=== PATIENT | female | born 2000 | race Caucasian/White ===

== ENCOUNTER 2022-05-11 18:31 | Emergency (ER) | payer OTHER, SELFPAY ==
--- NOTE | ~2022-05-11 | XR_ITS ---
EXAM: XR foot LT min 3V DATE: 05/11/2022 18:58 HISTORY: pain and swelling on lateral side of left 5th metatarsal. . COMPARISON: None available. FINDINGS: Normal mineralization. Nondisplaced transverse fracture of the proximal aspect of the left fifth metatarsal, 1.2 cm from the tip of the tuberosity, and not definitively involving the intermet atarsal articulation. No lytic or blastic lesion. Joint spaces are maintained. No erosion or perioste al change. Soft tissues within normal limits. IMPRESSION: Nondisplaced proximal fifth metatarsal avulsion fracture (also known as a dancer's fractu re or pseudo-Christensen fracture). Reviewed, dictated and finalized at location [facility] IMPRESSION: Nondisplaced proximal fifth metatarsal avulsion fracture (also know n as a dancer's fracture or pseudo-Christensen fracture).
[2022-05-11 18:32] VITALS: BP 139/89; PULSE 103; RESP 16; TEMP 36.3; O2SAT 98
[2022-05-11 18:35] VITALS: BP 139/89; PULSE 98; RESP 16; TEMP 36.3; O2SAT 97
--- NOTE | 2022-05-11 19:12 | ED.GENADULT ---
HPI - General Adult General Chief complaint: Extremity Injury, Lower Stated complaint: L foot pain Time Seen by Provider: 05/11/22 19:06 History of Present Illness HPI narrative: Alejandra presented to the ED with pain in her left foot. Pain started after standing up with her toes trapped and she felt immediate pain. There were no other injuries or concerns noted. Related Data Allergies Allergy/AdvReac Type Severity Reaction Status Date / Time Penicillins Allergy Itching Verified 05/11/22 18:42 Review of Systems Review of Systems: All systems reviewed & are unremarkable except as noted in HPI and below Exam Const: General: healthy appearing, no acute distress and alert Nutritional Appearance: well nourished Orientation/consciousness: patient oriented x3 HENMT: Head: normal to inspection Ears: external ears normal Face/Nose/Sinus: Normal external nose present Eyes: Conjunctivae: conjunctivae normal Pupils: Equal, round and reactive pupils present EOM: EOMs intact bilaterally Neck: Neck: normal visual inspection Chest: Chest palpation & inspection: normal inspection of the chest Resp: Effort & Inspection: normal respiratory effort Cardio: Rate: regular rate Skin: General skin exam: normal color Neuro: General: patient oriented x3 and moves all extremities Extrem: Other: TTP over the left lateral foot Psych: Mental Status: mental status grossly normal Course Course Emergency Course: EXAM:? XR foot LT min 3V DATE: 05/11/2022 18:58 HISTORY: pain and swelling on lateral side of left 5th metatarsal. . COMPARISON:? None available. FINDINGS:? Normal mineralization. Nondisplaced transverse fracture of the proximal aspect of the left fifth metatarsal, 1.2 cm from the tip of the tuberosity, and not definitively involving the intermetatarsal articulation. No lytic or blastic lesion. Joint spaces are maintained. No erosion or periosteal change. Soft tissues within normal limits. IMPRESSION: Nondisplaced proximal fifth metatarsal avulsion fracture (also known as a dancer's fracture or pseudo-Christensen fracture). Vital Signs Vital signs: Vital Signs Temperature 97.3 F L 05/11/22 18:32 Pulse Rate 103 H 05/11/22 18:32 Respiratory Rate 16 05/11/22 18:32 Blood Pressure 139/89 05/11/22 18:32 Pulse Oximetry 98 05/11/22 18:32 Oxygen Delivery Room Air 05/11/22 18:32 Temperature 97.3 F L 05/11/22 18:35 Pulse Rate 98 05/11/22 18:35 Respiratory Rate 16 05/11/22 18:35 Blood Pressure 139/89 05/11/22 18:35 Pulse Oximetry 97 05/11/22 18:35 Oxygen Delivery Room Air 05/11/22 18:35 Medical Decision Making Vital Signs Vital Signs: Vital Signs Temperature 97.3 F L 05/11/22 18:32 Pulse Rate 103 H 05/11/22 18:32 Respiratory Rate 16 05/11/22 18:32 Blood Pressure 139/89 05/11/22 18:32 Pulse Oximetry 98 05/11/22 18:32 Oxygen Delivery Room Air 05/11/22 18:32 Temperature 97.3 F L 05/11/22 18:35 Pulse Rate 98 05/11/22 18:35 Respiratory Rate 16 05/11/22 18:35 Blood Pressure 139/89 05/11/22 18:35 Pulse Oximetry 97 05/11/22 18:35 Oxygen Delivery Room Air 05/11/22 18:35 Discharge Plan Discharge Clinical Impression: Dancer's fracture Patient Disposition: Home, Self-Care Condition: Stable Instructions: Foot Fracture in Adults (ED) Additional Instructions: Please wear your walking boot and only bear as little weight as tolerated. Prescriptions: New hydrocodone-acetaminophen 5-325 mg tablet 1 tablet PO Q8H PRN (Reason: pain) Qty: 10 0RF Follow-up/Referrals: UNKNOWN,DOCTOR [Primary Care Provider] -
[2022-05-11] MEDS: HYDROcodone/acetaminophen (*CRX) 5-325 MG TABLET 1 TAB PO (19:23)
[2022-05-11] MEDS: KETOROLAC 30 MG/ML VIAL (*BKC) IM (19:24)
== END 2022-05-11 19:28 | disposition home or self-care (01) ==
PROVIDERS: Emergency Provider Family Medicine
DX: S92.515A Nondisplaced fracture of proximal phalanx of left lesser toe(s), initial encounter for closed fracture (principal); X50.1XXA Overexertion from prolonged static or awkward postures, initial encounter
CPT/HCPCS: 73630; 96372; 99284; A9270; J1885; L2112

== ENCOUNTER 2022-09-19 08:52 | Emergency (ER) | payer BC, SELFPAY ==
--- NOTE | ~2022-09-19 | XR_ITS ---
Clinical Indication: Status post toxic ingestion PA and lateral views of the chest: Comparison: None Findings: The lungs are clear, without evidence of focal consolidation or pleural effusion. Cardiome diastinal silhouette is within normal limits. Bones and soft tissues are unremarkable. Impression: Normal chest. Reviewed, dictated and finalized at [facility]. Impression: Normal chest.
[2022-09-19 08:54] VITALS: BP 134/90; PULSE 92; RESP 16; TEMP 36.2; O2SAT 99
[2022-09-19 09:03] VITALS: PULSE 90; RESP 18; RESP 20; O2SAT 99
[2022-09-19 09:04] VITALS: BP 138/97; PULSE 98; RESP 22; O2SAT 99
[2022-09-19 09:07] VITALS: PULSE 102
[2022-09-19] MEDS: ONDANSETRON HCL ODT 4 MG TABLET PO (09:24)
--- NOTE | 2022-09-19 09:36 | ED.GENADULT ---
HPI - General Adult General Chief complaint: Unspecified Stated complaint: chemical exposure-amonia/bleach Time Seen by Provider: 09/19/22 09:06 History of Present Illness HPI narrative: Patient is a 22-year-old female here for evaluation after exposure to chlorine gas. Patient states that she was cleaning up her dog's urine last evening with a large amount of bleach and she immediately started to feel unwell with eyes watering, shortness of breath, cough and congestion. She states that she went to bed and went to work this morning but her coworkers were concerned about the amount of eye watering and so they called poison control who referred her to the ED. States that her respiratory symptoms have improved but her eyes have continued to water despite frequent eye washing. Related Data Allergies Allergy/AdvReac Type Severity Reaction Status Date / Time Penicillins Allergy Itching Verified 09/19/22 08:54 Review of Systems Review of Systems: Gen.: Denies fevers or chills Eyes: Reports eyes are watering ENT: Denies congestion Respiratory: Reports shortness of breath and cough CV: Denies chest pain or palpitations GI: Denies abdominal pain nausea, emesis or diarrhea denies burning, urgency, frequency or hematuria Musculoskeletal: Denies back pain or muscle pain Neuro: Denies numbness, tingling, weakness or focal weakness Skin: Denies rash Except as documented, all other systems reviewed and negative Exam Narrative: APPEARANCE: Well appearing, no pain in distress, well-nourished. Head: Normocephalic and atraumatic. EYES: PERRLA/EOMI, conjunctivae clear NOSE: No nasal drainage EARS: External ear normal in appearance THROAT: Oropharynx is clear. Mucous membranes are moist. NECK: Supple. No adenopathy, no masses. RESPIRATORY: Airway patent, respirations nonlabored. Clear to auscultation bilaterally, no rales, rhonchi, wheezing. CARDIOVASCULAR: Regular rate and rhythm without murmurs, rubs, or gallops. ABDOMINAL: Normoactive bowel sounds. Soft, nontender, nondistended. No rebound tenderness or guarding. MUSCULOSKELETAL: Extremities are warm and well-perfused. Moves all extremities well. No edema. NEURO: Normal speech. No focal neurologic deficits. SKIN: Skin is warm and dry. No rashes. PSYCHIATRIC: Normal affect/mood. Course Vital Signs Vital signs: Vital Signs Temperature 97.2 F L 05/05/23 08:54 Pulse Rate 92 09/19/22 08:54 Respiratory Rate 16 09/19/22 08:54 Blood Pressure 134/90 09/19/22 08:54 Pulse Oximetry 99 09/19/22 08:54 Oxygen Delivery Room Air 09/19/22 08:54 Temperature 97.2 F L 09/19/22 08:54 Pulse Rate 102 H 09/19/22 09:07 Respiratory Rate 22 H 09/19/22 09:04 Blood Pressure 138/97 H 09/19/22 09:04 Pulse Oximetry 99 09/19/22 09:04 Oxygen Delivery Room Air 09/19/22 08:54 Medical Decision Making MDM Narrative Medical decision making narrative: 22-year-old female here for evaluation after accidental exposure to ammonia and bleach last evening, complaining of eye watering and some difficulty breathing. Poison control was contacted who recommends only exposure to fresh air. Patient is nontoxic in appearance, her eyes do appear somewhat watery but they are not injected, she is not having any difficulty seeing, does not wear contact lenses. She was taken to the eyewash station, given antinausea medicine with improvement of her symptoms. Her basic labs, EKG and chest x-ray are normal. She will be discharged home with return precautions in place. Vital Signs Vital Signs: Vital Signs Temperature 97.2 F L 09/19/22 08:54 Pulse Rate 92 09/19/22 08:54 Respiratory Rate 16 09/19/22 08:54 Blood Pressure 134/90 09/19/22 08:54 Pulse Oximetry 99 09/19/22 08:54 Oxygen Delivery Room Air 09/19/22 08:54 Temperature 97.2 F L 09/19/22 08:54 Pulse Rate 102 H 09/19/22 09:07 Respiratory Rate 22 H 09/19/22 09:04 Blood Pressure 138/97 H 09/19/22
[2022-09-19 09:38] LABS: Basophils Percent Auto 0.5 % (0.2-1.2); Eosinophils Percent Auto 0.5 % (0-4.4); Hematocrit 43.2 % (37.0-47.0); Hemoglobin 14.2 g/dL (12.0-15.0); Immature Granulocyte Absolute 0.02 K/mm3 (0.00-0.031); Immature Granulocyte Percent A 0.3 % (0-0.5); Lymphocytes Absolute Auto 1.69 K/mm3 (0.9-3.2); Lymphocytes Percent Auto 28.5 % (18.3-44.2); Mean Corpuscular HGB Conc 32.9 g/dl (32-36); Mean Corpuscular Hemoglobin 29.5 pg (26-34); Mean Corpuscular Volume 89.8 fl (80-100); Mean Platelet Volume 10.1 fl (7.4-10.4); Monocytes Absolute Auto 0.6 K/mm3 (0.1-0.6); Monocytes Percent Auto 9.3 % (2.6-8.5); Neutrophils Absolute Auto 3.6 K/mm3 (1.3-6.7); Neutrophils Percent Auto 60.9 % (45.5-73.1); Platelet Count Result 261 k/mm3 (150-375); Red Blood Count 4.81 M/mm3 (4.2-5.4); Red Cell Distribution Width 12.6 % (11.5-14.5); White Blood Count 5.9 K/mm3 (4.5-10.0)
[2022-09-19 09:48] LABS: Anion Gap 10 mmol/L (8-16); Blood Urea Nitrogen 13 mg/dL (7-17); Calcium 9.7 mg/dL (8.4-10.2); Carbon Dioxide 27 mmol/L (22-30); Chloride 104 mmol/L (98-107); Estimated CRCL calculation 79 ml/min; Estimated Glomerular Filt Rate > 60; Glucose 94 mg/dL (65-110); Sodium 141 mmol/L (137-145)
--- NOTE | 2022-09-19 09:50 | ECG_ITS ---
Measurements Intervals [place] Rate: 72 P: 16 MI: 141 QRS: 50 QRSD: 90 T: 22 QT: 372 QTc: 408 Interpretive Statements SINUS RHYTHM WITH SINUS ARRHYTHMIA MINIMAL Q WAVES- INFERIOR LEADS BASELINE ARTIFACT- I, II, AVR BORDERLINE ECG NO PREVIOUS ECG AVAILABLE FOR COMPARISON Electronically Signed On 09-19-2022 11:13:12 CDT by Raj Gramajo D.O.
--- NOTE | 2022-09-19 11:23 | PC.NURSE ---
took pt to eyewash station to rinse out her eyes. pt reports relief afterwards.
== END 2022-09-19 11:46 | disposition home or self-care (01) ==
PROVIDERS: Emergency Provider Physician Assistant
DX: T54.3X1A Toxic effect of corrosive alkalis and alkali-like substances, accidental (unintentional), initial encounter (principal); H57.89 Other specified disorders of eye and adnexa; R94.31 Abnormal electrocardiogram [ECG] [EKG]
CPT/HCPCS: 36415; 71046; 80048; 85025; 93005; 99283; A9270

== ENCOUNTER 2022-11-12 07:11 | Outpatient (RCR) | payer BC, SELFPAY ==
[2022-11-10 07:58] LABS: Beta HCG Quantitative 153.34 mIU/ML
== END 2023-02-08 23:59 | disposition home or self-care (01) ==
LOC: ANHLAB 07:11
PROVIDERS: Visit Provider Advanced Practice Midwife
DX: N91.2 Amenorrhea, unspecified (principal)
CPT/HCPCS: 36415; 84702

== ENCOUNTER 2022-12-07 16:14 | Emergency (ER) | payer BC, SELFPAY ==
[2022-12-07 16:22] VITALS: BP 129/81; PULSE 84; RESP 18; TEMP 36.9; O2SAT 100
[2022-12-07 16:42] LABS: Basophils Percent Auto 0.2 % (0.2-1.2); Eosinophils Absolute Auto 0.1 K/mm3 (0-0.3); Eosinophils Percent Auto 0.6 % (0-4.4); Hematocrit 39.9 % (37.0-47.0); Hemoglobin 13.6 g/dL (12.0-15.0); Immature Granulocyte Absolute 0.03 K/mm3 (0.00-0.031); Immature Granulocyte Percent A 0.3 % (0-0.5); Lymphocytes Absolute Auto 1.76 K/mm3 (0.9-3.2); Lymphocytes Percent Auto 18.8 % (18.3-44.2); Mean Corpuscular HGB Conc 34.1 g/dl (32-36); Mean Corpuscular Hemoglobin 29.8 pg (26-34); Mean Corpuscular Volume 87.3 fl (80-100); Monocytes Absolute Auto 0.7 K/mm3 (0.1-0.6); Neutrophils Absolute Auto 6.8 K/mm3 (1.3-6.7); Neutrophils Percent Auto 73.1 % (45.5-73.1); Platelet Count Result 256 k/mm3 (150-375); Red Blood Count 4.57 M/mm3 (4.2-5.4); Red Cell Distribution Width 13.4 % (11.5-14.5); White Blood Count 9.4 K/mm3 (4.5-10.0)
--- NOTE | 2022-12-07 17:16 | ED.GENADULT ---
HPI - General Adult General Chief complaint: Unspecified Stated complaint: i need to see if i miscarried Time Seen by Provider: 12/07/22 16:54 Source: patient Mode of arrival: ambulatory Limitations: no limitations History of Present Illness HPI narrative: Patient is a 22 y/o female who presents to the ED with concern for miscarriage. Patient is G2, P0, history of miscarriage at age 15. She reports she is currently 6 to 8 weeks gestation by [facility]. She has had 2 previous ultrasounds at outside facilities with conflicting results. She states she was initially told she was having twins, but was later told one of the twins' sacs had dissipated. She states last week she was told that the remaining living twin heart rate was in the low 100s and there was concern that it may be nonviable. Patient states she was referred here to receive a internal ultrasound. Patient reports she just wants an ultrasound to determine if she has a viable baby or not. Patient does not currently have a OB that she is planning to follow-up with. She denies any vaginal bleeding, current lower abdominal pain, nausea, vomiting, fevers, urinary symptoms. Related Data Allergies Allergy/AdvReac Type Severity Reaction Status Date / Time Penicillins Allergy Itching Verified 12/07/22 16:15 Review of Systems Review of Systems: CONSTITUTIONAL: Denies fever, chills, or sweats. CARDIOVASCULAR: Denies chest pain. RESPIRATORY: Denies dyspnea. GASTROINTESTINAL: See HPI. GENITOURINARY: Denies vaginal bleeding, dysuria or hematuria. SKIN: Denies rash or itching. MUSCULOSKELETAL: Denies back pain, joint pain, or myalgia. All systems reviewed & are unremarkable except as noted in HPI and below Exam Narrative: GENERAL: Well appearing, well-nourished, non-toxic, in no acute distress. HEAD: Normocephalic, atraumatic. NECK: Supple. No adenopathy, no masses. RESPIRATORY: Airway patent, respirations nonlabored. Clear to auscultation bilaterally, no rales, rhonchi, wheezing. CARDIOVASCULAR: Regular rate and rhythm without murmurs, rubs, or gallops. Radial pulses 2+ and equal bilaterally. ABDOMINAL: Soft, no tenderness throughout abdomen, nondistended, no hepatosplenomegaly. Normoactive BS. MUSCULOSKELETAL: Moves all extremities. Strength/ROM intact without gross deformities. SKIN: Warm, dry, normal color. No rashes. NEURO: A&O X3. Speech clear. Cranial nerves II-XII grossly intact. Steady gait. No ataxic movements. PSYCHIATRIC: Appropriate mood and affect. Normal interaction. Course Vital Signs Vital signs: Vital Signs Temperature 98.5 F 12/07/22 16:22 Pulse Rate 84 12/07/22 16:22 Respiratory Rate 18 12/07/22 16:22 Blood Pressure 129/81 12/07/22 16:22 Pulse Oximetry 100 12/07/22 16:22 Temperature 98 F 12/07/22 18:24 Pulse Rate 68 12/07/22 18:24 Respiratory Rate 16 12/07/22 18:24 Blood Pressure 122/82 12/07/22 18:24 Pulse Oximetry 98 12/07/22 18:24 Medical Decision Making MDM Narrative Medical decision making narrative: Patient presented to ED G2, P0, currently approximately 6 to 8 weeks gestation, wanting ultrasound to determine viability. Vital stable upon arrival. Exam unremarkable. Patient without any abdominal cramping or vaginal bleeding. Beta hCG quantitative today ~52,000. Patient did have blood work drawn here almost 1 month ago in which her levels were less than 1000 at that time. Unable to view any ultrasound records in our system patient reports she has had a confirmed IUP. Urinalysis here with trace leuk esterase, 6-10 WBC. Sent for culture. Will treat due to status. Patient's blood type O+. Discussed case with Dr. Zavala, [employer]ATOR on-call, advised will follow with patient in office. Have patient call office tomorrow. Recommended placing order for outpatient ultrasound as their office clay temperer will not be able to see patient tomorrow. Patient updated on these recommendations. S
[2022-12-07 18:06] LABS: Appearance Urine Turbid (Clear); Bacteria Urine None Seen /hpf; Bilirubin Urine Negative (Negative); Blood Urine Negative (Negative); Color Urine Dark Yellow (Yellow); Glucose Urine UA Trace mg/dL (Negative); Ketones Urine 1+ mg/dL (Negative); Leukocyte Esterase Ur Trace LEU/UL (Negative); Nitrate Urine Negative (Negative); Non Pathogenic Casts 0-2; Protein Urine Trace mg/dL (Negative); RBC Urine 0-2 /hpf (0-2); Specific Grav Ur 1.028 (1.001-1.035); Squamous Epithelial Cell Urine Occasional /hpf (Few); pH Urine 5.5 (5.0-9.0)
[2022-12-07 18:17] LABS: Add Urine Microscopic? YES
[2022-12-07 18:24] VITALS: BP 122/82; PULSE 68; RESP 16; TEMP 36.6; O2SAT 98
== END 2022-12-07 18:25 | disposition home or self-care (01) ==
PROVIDERS: Emergency Medicine; Emergency Provider Physician Assistant
DX: O26.891 Other specified pregnancy related conditions, first trimester (principal); R82.71 Bacteriuria; Z3A.00 Weeks of gestation of pregnancy not specified
CPT/HCPCS: 36415; 81001; 84702; 85025; 85461; 86850; 86900; 86901; 87086; 99283

== ENCOUNTER 2022-12-26 01:59 | Day surgery (SDC) | payer BC, SELFPAY ==
--- NOTE | 2022-12-23 12:22 | PM.IMHP ---
H&P: HPI History of Present Illness Date/Time: 12/23/22 12:22 Chief Complaint: Missed A/B first-trimester Narrative: This is a 22-year-old 2 para 0 with 1st trimester missed A/B. Serial ultrasound has shown no growth consistent with abnormal . She was given the absence of watchful waiting her considering dilatation curettage in op for the latter. Risks and benefits reviewed Meds Home Medications and Allergies Home Medications Medication Instructions Recorded Confirmed Type hydrocodone 5 mg-acetaminophen 325 1 tablet PO Q8H PRN pain #10 tabs 05/11/22 Rx mg tablet hydrocodone 5 mg-acetaminophen 325 1 tablet PO Q8H PRN pain #10 tabs 05/11/22 Rx mg tablet nitrofurantoin 100 mg PO Q12H 5 days #10 caps 12/07/22 Rx monohydrate/macrocrystals 100 mg capsule Allergies Allergy/AdvReac Type Severity Reaction Status Date / Time Penicillins Allergy Itching Verified 12/07/22 16:15 Exam Const: General: cooperative, healthy appearing, comfortable and average body habitus Orientation/consciousness: oriented to person, oriented to place and oriented to time HENMT: Head: normal to inspection Resp: Effort & Inspection: normal respiratory effort Cardio: Rate: regular rate Rhythm: regular rhythm Heart sounds: S1 normal heart sound present and S2 normal heart sound present GI: Inspection: normal to inspection : External Female Exam: normal external appearance Speculum Exam - Vagina: normal appearance of the vagina Speculum Exam - Cervix: normal appearance of the cervix Bimanual exam- vagina & uterus: enlarged Bimanual Exam- Adnexa, other: normal adnexae Assessment and Plan Assessment and plan (1) Missed : Code(s): O02.1 - Missed Status: Acute Plan Suction dilatation and curettage
[2022-12-23 12:27] VITALS: BMI 27.2
--- NOTE | 2022-12-23 12:35 | PC.NURSE ---
Report to the Outpatient Waiting Room, entrance under the green pavilion located off [facility], at time _1215_ on date _[id number]_. Planned Procedure Time: _215pm_. Time changes happen often and if your time is changed the preop area will call you the afternoon before. - You and your visitor will be asked to self-screen and do not enter if you have any COVID symptoms. - A mask is optional within the hospital at this time. Patients may have clear liquids (water, carbonated beverages, clear teas, apple juice) until 3 hours prior to surgery with a maximum of 20 ounces. - No food from midnight until time of surgery Take the following medications with a SIP of water the morning of surgery: ___None DO NOT STOP ANY OF YOUR OTHER PRESCRIPTION MEDICATIONS PRIOR TO SURGERY ?EXCEPT THE FOLLOWING Medications to discontinue per physician None Date to take last dose Please no make-up, nail norwegian, hairspray, perfume, deodorant, or body powder the day of surgery. No jewelry (including any body piercings) or valuables the day of surgery, leave them at home. Please take a shower or bath the night before, or the morning of, surgery with an antibacterial soap. Wear comfortable, loose fitting clothing. - Jewelry must be removed prior to entering the operating room. Rings and piercings that are not removed may be cut off. - The hospital will not accept responsibility for valuables. - Please leave all valuables, including medications, at home the day of surgery. If you are going home after surgery, a licensed crew truck driver must drive you home. - NO public transportation without another adult if you receive anesthesia. - We recommend that an adult stay with you for 24 hours following discharge. - We also recommend that you do not drive, make important decision, drink alcoholic beverages, or take any drugs that were not prescribed by your health care provider for at least 24 hours after your discharge time. Follow any additional instructions given to you from your surgeon. If you or anyone in your household have experienced Covid symptoms in the past week, please notify your surgeon or the nurse liaison at the phone number below for possible testing. Telephone instructions given to _Patient___and asked if any additional questions and then verbalized understanding. Patient advised to call surgeon office or pre surgery nurse liaison [phone] if any additional questions.
--- NOTE | 2022-12-26 06:34 | WPDHPUPDATE1 ---
History and Physical Update Update Date/Time: 12/26/22 06:34 History and Physical has been reviewed, including an updated exam of the patient. There are NO changes in the patient's condition. Risks, benefits, and alternatives have been discussed and questions answered. Patient agrees to proceed with procedure.
[2022-12-26 12:30] VITALS: BMI 27.1
[2022-12-26 12:35] VITALS: BP 134/93; PULSE 84; RESP 16; TEMP 36.8; O2SAT 100
--- NOTE | 2022-12-26 12:48 | P.PNAN_ITS ---
Anes - Initial Pre Proc Eval Procedure: Operation Date: 12/26/22 14:15 Proposed Procedures p Suction Dilation and Curettage - Ant Lal MD Date/Time: 12/26/22 12:48 Surgeon: Ant Lal MD Pre Op Diagnosis: Missed Ab Patient Data Age: 22 Gender: F Height: 1.52 m Weight: 63.2 kg Allergies Allergy/AdvReac Type Severity Reaction Status Date / Time Penicillins Allergy Intermediate Rash Verified 12/26/22 12:36 tramadol AdvReac Severe Confusion Verified 12/26/22 12:36 Home Medications Medication Instructions Recorded Confirmed Type No Home Medications 12/23/22 12/23/22 History Patient hx anesthesia problems: none Family hx anesthesia problems: none Results Review: All pre-operative results and documents have been reviewed as part of the pre-operative evaluation. [facility] Social History Social History Smoking status: Never smoker Living arrangements: with family Spiritual care concerns: No Anes - Eval Final PreProcedure Day of Procedure 12/26/22 12:48 Patient weight: overweight Heart: regular rate and rhythm Lungs: clear to auscultation Airway: Mallampati scale class II Neurological: alert and oriented Last oral intake: >/= 8 hours ASA classification: II Emergent: no Anesthetic plan: proceed Anesthesia type and monitoring: general GIVS and standard monitoring Results Review: All pre-operative results and documents have been reviewed as part of the pre- operative evaluation. Informed Consent: The patient's anesthetic plan and its attendant risks and benefits were discussed with the patient/family/POA. Questions were solicited and answers provided to the satisfaction of the patient/family/POA.
[2022-12-26] MEDS: LACTATED RINGERS 1,000 ML 30 ML IV CONT (13:05)
[2022-12-26] MEDS: ACETAMINOPHEN 500 MG TABLET 1000 MG PO (13:08)
[2022-12-26] MEDS: LIDOCAINE HCL 1% LOCAL INJ 10 ML VIAL INFILTRATE (14:00)
[2022-12-26 14:02] VITALS: BP 117/54; PULSE 77; RESP 20; O2SAT 98
--- NOTE | 2022-12-26 14:02 | W.PM.PROC2 ---
Procedure Note - Detailed Date of Procedure 12/26/22 Pre-op Diagnosis Missed Ab Post-op Diagnosis Same Procedure Performed Suction dilatation curettage Surgeon Ant Lal MD Anesthesia MAC and Local Indications this 22-year-old 2 para 0 1st trimester with Findings uterus is retroverted with a soundings 10. Tissue consistent with products of conception Description of Procedure patient was prepped draped in normal sterile placed in position. Under excellent IV sedation weighted speculum placed posterior fornix vagina. Anterior lip cervix with single-tooth neck 2.5cc% xylocaine anesthesia placed at 2, 4, 8, 10:00 a.m. the cervix. Uterus was retroverted and sounded to 10cm. Serial dilatation with fragmented dilators followed by passage of the 10. Suction curette. Several passes were made good amount of tissue removed grating sound. The instruments withdrawn and blood loss estimated 5cc. The specimen was sent for chromosomes and the instruments withdrawn. Blood loss estimated 25cc. All sponge, ED instruments were accounted for. The patient went to recovery in satisfactory condition Estimated Blood Loss 25 Drains No Packing No Pathology Yes Complications No immediate complications Condition Stable Disposition PACU
[2022-12-26 14:30] VITALS: BP 114/58; PULSE 59; RESP 20
[2022-12-26] MEDS: oxyCODONE HCL (*CRX) 5 MG TAB IR PO (14:36)
[2022-12-26 15:00] VITALS: BP 114/58; PULSE 60; RESP 20
== END 2022-12-26 15:10 | disposition home or self-care (01) ==
PROVIDERS: Visit Provider Obstetrics & Gynecology
PROC: (CPT 59820; principal; 2022-12-26 14:15)
DX: O02.1 Missed abortion (principal)
CPT/HCPCS: 59820; 88305; A9270; J2250; J2704; J3010; J7120

== ENCOUNTER 2023-09-08 12:55 | Emergency (ER) | payer OTHER, SELFPAY ==
[2023-09-08 13:01] VITALS: BP 144/104; PULSE 85; RESP 20; TEMP 36.6; O2SAT 100
[2023-09-08 13:29] LABS: Basophils Percent Auto 0.4 % (0.2-1.2); Eosinophils Absolute Auto 0.1 K/mm3 (0-0.3); Eosinophils Percent Auto 0.9 % (0-4.4); Hematocrit 40.7 % (37.0-47.0); Hemoglobin 13.6 g/dL (12.0-15.0); Immature Granulocyte Absolute 0.02 K/mm3 (0.00-0.031); Immature Granulocyte Percent A 0.2 % (0-0.5); Lymphocytes Absolute Auto 2.06 K/mm3 (0.9-3.2); Lymphocytes Percent Auto 25.6 % (18.3-44.2); Mean Corpuscular HGB Conc 33.4 g/dl (32-36); Mean Corpuscular Hemoglobin 29.8 pg (26-34); Mean Corpuscular Volume 89.1 fl (80-100); Mean Platelet Volume 9.8 fl (7.4-10.4); Monocytes Absolute Auto 0.6 K/mm3 (0.1-0.6); Monocytes Percent Auto 6.8 % (2.6-8.5); Neutrophils Absolute Auto 5.3 K/mm3 (1.3-6.7); Neutrophils Percent Auto 66.1 % (45.5-73.1); Platelet Count Result 305 k/mm3 (150-375); Red Blood Count 4.57 M/mm3 (4.2-5.4); Red Cell Distribution Width 13.2 % (11.5-14.5)
[2023-09-08 13:39] LABS: Alanine Aminotransferase 29 U/L (6-35); Albumin Level 4.7 g/dL (3.5-5.1); Alkaline Phosphatase 90 U/L (38-126); Anion Gap 7 mmol/L (4-12); Aspartate Amino Transferase 63 U/L (14-36); Bilirubin,Total 0.6 mg/dL (0.2-1.3); Blood Urea Nitrogen 8 mg/dL (7-17); Calcium 9.6 mg/dL (8.4-10.2); Carbon Dioxide 23 mmol/L (22-30); Chloride 106 mmol/L (98-107); Estimated CRCL calculation 103 ml/min; Estimated Glomerular Filt Rate > 60; Glucose 88 mg/dL (65-110); Potassium 3.9 mmol/L (3.4-5.0); Sodium 136 mmol/L (137-145)
[2023-09-08 13:43] LABS: INR 0.9; Prothrombin Time 12.7 Seconds (11.1-14.7)
[2023-09-08 13:44] LABS: Partial Thromboplastin Time 31.6 Seconds (22.3-36.8)
--- NOTE | 2023-09-08 14:25 | ED.GENADULT ---
HPI - General Adult General Chief complaint: Vaginal Bleeding Stated complaint: 6 weeks /bleeding Time Seen by Provider: 09/08/23 13:06 History of Present Illness HPI narrative: Alejandra Aburto is a 23 y/o female who presents with reports of being . She was evaluated by her OBGYN Dr. Mp Lal yesterday and was noted to have an intrauterine yolk sac without heart beat estimated to be 5 weeks 6 days and recommended to come back next week for another ultrasound. She presents today wt reports of noticing some pink spotting with wiping today, no bright red bleeding. No urinary symptoms reports mild low pelvic cramping but nothing like her normal menstrual cramps Related Data Allergies Allergy/AdvReac Type Severity Reaction Status Date / Time Penicillins Allergy Intermediate Rash Verified 12/26/22 12:36 tramadol AdvReac Severe Confusion Verified 12/26/22 12:36 Review of Systems Review of Systems: All systems reviewed & are unremarkable except as noted in HPI and below PMFSH Social History Social History Smoking status: Never smoker Living arrangements: with family Spiritual care concerns: No Exam Narrative: GENERAL: Well-appearing, well-nourished, and in no acute distress. HEAD: Normocephalic, atraumatic. EYES: PERRLA and EOMI. ENT: Nares clear, no rhinorrhea or epistaxis. Mucous membranes moist. Oropharynx without tonsillar hypertrophy exudate or other lesions. NECK: Supple. No adenopathy or masses. No carotid bruits or JVD CHEST: Clear to auscultation. No respiratory distress. No wheezes rales or rhonchi HEART: Regular rate and rhythm. No murmur heard. Normal peripheral pulses. ABDOMEN: Soft, nontender, nondistended, normal active bowel sounds. EXTREMITIES: Normal range of motion. No edema. SKIN: Warm, dry, no rash. NEURO: No focal deficits. Alert and oriented x3. PSYCH: Normal mood and affect. Course Vital Signs Vital signs: Vital Signs Temperature 36.6 C 09/08/23 13:01 Pulse Rate 85 09/08/23 13:01 Respiratory Rate 20 09/08/23 13:01 Blood Pressure 144/104 H 09/08/23 13:01 Pulse Oximetry 100 09/08/23 13:01 Oxygen Delivery Room Air 09/08/23 13:01 Temperature 36.8 C 09/08/23 16:01 Pulse Rate 75 09/08/23 16:01 Respiratory Rate 16 09/08/23 16:01 Blood Pressure 128/79 09/08/23 16:01 Pulse Oximetry 100 09/08/23 16:01 Oxygen Delivery Room Air 09/08/23 13:01 Medical Decision Making MDM Narrative Medical decision making narrative: 23 y/o female with light pink spotting with wiping today estimated to be about 6 weeks / intrauterine yolk sac verified yesterday in OB office she reports mild lower pelvic cramping but not severe Concern for : threatened miscarriage/ ectopic - r/o yesterday/ CBC - hemodynamically stable CMP- NA 136, Creat 0.60, AST 63 BETa - 25,716 RH - Positive - O Positive while here she has not had any more vaginal bleeding - I dont feel that pelvic exam at this point is necessary will consult her OBGYN Consulted Dr. Mp Lal regarding pt's ER visit and he recommends pt to continue to follow up next week for another ultrasound and to continue taking her progesterone. Updated pt what Dr. Mp Lal recommended Patient feels comfortable with d/c home and denies having any further questions. Medical Records Medical records reviewed: Yes I reviewed the external patient's medical records. Vital Signs Vital Signs: Vital Signs Temperature 36.6 C 09/08/23 13:01 Pulse Rate 85 09/08/23 13:01 Respiratory Rate 20 09/08/23 13:01 Blood Pressure 144/104 H 09/08/23 13:01 Pulse Oximetry 100 09/08/23 13:01 Oxygen Delivery Room Air 09/08/23 13:01 Temperature 36.8 C 09/08/23 16:01 Pulse Rate 75 09/08/23 16:01 Respiratory Rate 16 09/08/23 16:01 Blood Pressure 128/79 09/08/23 16:01 Pulse Oximetry 100 09/08/23 16:01 Oxygen Del
[2023-09-08 14:50] VITALS: BP 131/85; PULSE 78; RESP 16; O2SAT 100
[2023-09-08 16:01] VITALS: BP 128/79; PULSE 75; RESP 16; TEMP 36.8; O2SAT 100
== END 2023-09-08 16:01 | disposition home or self-care (01) ==
PROVIDERS: Emergency Provider Nurse Practitioner Family
DX: O20.0 Threatened abortion (principal); Z3A.01 Less than 8 weeks gestation of pregnancy
CPT/HCPCS: 36415; 80053; 84702; 85025; 85461; 85610; 85730; 86850; 86900; 86901; 99283

== ENCOUNTER 2024-03-19 18:28 | Outpatient (RCR) | payer OTHER, SELFPAY ==
[2024-03-19 20:32] VITALS: BP 139/86; PULSE 83
== END 2024-05-28 16:12 | disposition home or self-care (01) ==
LOC: ANHOBOP 18:28
PROVIDERS: Visit Provider Obstetrics & Gynecology
DX: O36.8130 Decreased fetal movements, third trimester, not applicable or unspecified (principal); Z3A.32 32 weeks gestation of pregnancy
CPT/HCPCS: 59025

== ENCOUNTER 2024-03-27 02:37 | Observation (INO) | payer OTHER, SELFPAY ==
[2024-03-27] VITALS (59 sets, daily range): BP systolic 120–147; BP diastolic 67–100; PULSE 84–130; RESP 16; TEMP 36.8–37.6; O2SAT 94–100; BMI 30.1
[2024-03-27 04:36] LABS: Add Urine Microscopic? YES; Appearance Urine Clear (Clear); Bacteria Urine None Seen /hpf; Bilirubin Urine Negative (Negative); Blood Urine Negative (Negative); Color Urine Yellow (Yellow); Glucose Urine UA Negative (Negative); Ketones Urine Negative (Negative); Leukocyte Esterase Ur 1+ LEU/UL (Negative); Nitrate Urine Negative (Negative); Non Pathogenic Casts 0-2; Protein Urine Negative (Negative); RBC Urine 0-2 /hpf (0-2); Specific Grav Ur 1.015 (1.001-1.035); Squamous Epithelial Cell Urine None Seen /hpf (Few); Urobilinogen Urine 0.2 mg/dL (<2.0); pH Urine 7.5 (5.0-9.0)
--- NOTE | 2024-03-27 05:03 | P.HP_ITS ---
H&P: HPI History of Present Illness Date/Time: 03/27/24 05:03 Chief Complaint: contractions Narrative: 23 yo A1 at 33 6/7 wks with contractions and mucus discharge. On exam, contractions not tracing but are palpable. Cervix is 4-5/ 60/BBOW with hand palpable. uncomplicated to this point. labs: NIPT low rish, CF neg., O+, Rubella Immune, RPR -, Hiv -, Hep B -. Review of Systems Review of Systems: All systems reviewed & are unremarkable except as noted in HPI and below (HPI) [facility] Past Medical History Medical History (Updated 03/27/24 @ 05:10 by Roshni Altamirano MD) Anxiety Spontaneous twins Surgical History Surgical History (Updated 03/27/24 @ 05:08 by Roshni Altamirano MD) History of D&C 01/07 Social History Social History Smoking status: Never smoker Living arrangements: with family Spiritual care concerns: No Meds Home Medications and Allergies Home Medications Medication Instructions Recorded Confirmed Type hydrocodone 5 mg-acetaminophen 325 1 tablet PO Q4H PRN pain #14 tabs 12/26/22 Rx mg tablet Allergies Allergy/AdvReac Type Severity Reaction Status Date / Time Penicillins Allergy Intermediate Rash Verified 12/26/22 12:36 tramadol AdvReac Severe Confusion Verified 12/26/22 12:36 Vital Signs Vital Signs - 24 hr 03/27/24 02:51 03/27/24 03:00 03/27/24 03:30 Pulse Rate 85 89 84 Blood Pressure 138/92 H 142/97 H 122/83 Exam Const: General: comfortable, no acute distress and alert Resp: Effort & Inspection: normal respiratory effort GI: Inspection: normal to inspection GI Palp: No abdominal tenderness and Yes Soft to palpation : Manual OB Exam: dilated 4 cm (4.5), effaced 50% (60) and other (BBOW) H&P: Results Labs Labs: Urine 03/27/24 Range/Units 04:23 Urine Color Yellow (Yellow) Urine Appearance Clear (Clear) Urine pH 7.5 (5.0-9.0) Ur Specific [place] 1.015 (1.001-1.035) Urine Protein Negative (Negative) mg/dL Urine Glucose (UA) Negative (Negative) mg/dL Assessment and Plan Assessment and plan (1) 33 weeks gestation of : Code(s): Z3A.33 - 33 weeks gestation of Status: Acute Assessment and Plan: 33 6/7 weeks (2) labor: Code(s): O60.00 - labor without delivery, unspecified trimester Status: Acute Assessment and Plan: Loading Magnesium sulfate 4 g bolus then 2g/h. Giving Steroids. Plan transfer to [facility]. Patient with PCN allergy and accepting MD prefers to wait until arrival there to begin antibiotics.
[2024-03-27] MEDS: LACTATED RINGERS 1,000 ML 75 ML IV CONT (05:04)
[2024-03-27] MEDS: MAGNESIUM SULF 4 GM/WATER100ML 4 GM/100 ML BAG IVPB (05:09)
[2024-03-27] MEDS: BETAMETHASONE SOD PHOS/ACETATE 30 MG/5 ML VIAL 12 MG IM (05:26)
[2024-03-27] MEDS: MAGNESIUM SULF 20GM/WATER500ML 500 ML 50 MG IV CONT (05:42)
[2024-03-27] MEDS: TERBUTALINE SULFATE 1 MG/ML VIAL 0.25 MG SUB-Q (06:15)
--- NOTE | 2024-03-27 06:50 | LDADM ---
This patient, Alejandra Aburto, was admitted to Labor/Delivery/Recovery 106 on 03/27/24 at 02:37. Plans for labor, pain management and were discussed with patient. Patient/family oriented to hospital policies and general routines including ID bracelet, bed and alarms, visiting hours, pain management, procedures, bathroom and other care routines, personal items, smoking policy, room service/diet and guest tray routines, security routines, and visiting hours. Patient/Family are encouraged to report perceived risks to care and to ask questions if they do not understand what they are told or what they should do. See [facility] for further documentation.
== END 2024-03-27 08:25 | disposition short-term general hospital (02) ==
PROVIDERS: Admitting Provider Obstetrics & Gynecology Gynecology; Visit Provider Obstetrics & Gynecology Gynecology
DX: O60.03 Preterm labor without delivery, third trimester (principal); Z3A.33 33 weeks gestation of pregnancy
CPT/HCPCS: 81001; 96372; 96374; G0378; G0379; J0702; J3105; J3475; J7120